=== PATIENT | female | born 1970 | race Caucasian/White ===

== ENCOUNTER 2016-06-17 07:06 | Day surgery (SDC) ==
[2016-06-16 09:03] LABS: MANUAL DIFF NEEDED? NO
[2016-06-16 09:09] LABS: BASO% 0.2 % (0.0-0.8); EOS% 2.3 % (0.0-10.0); HEMATOCRIT 34.6 % (37.0-47.0); HEMOGLOBIN 10.9 g/dL (12.0-16.0); LYMPH# 1.71 X1000 (1.2-3.4); LYMPH% 38.8 % (20.5-51.1); MCHC 31.5 g/dL (33-37); MCV 85.6 FL (81-99); MONO# 0.38 X1000 (0.11-0.59); MONO% 8.6 % (1.7-9.3); MPV 8.9 FL (7.4-10.4); NEUT% 50.1 % (42.2-75.2); PLT 293 X1000 (130-400); RBC 4.04 XMIL (4.2-5.4)
--- NOTE | 2016-06-16 19:05 | HISTORY AND PHYSICAL ---
HISTORY: The patient is a 46-year-old white female, para 3-0-0-3 with a history of 3 prior sections who is having increasing problems with pelvic pain. She has had problems in the past with some abnormal bleeding, has undergone an endometrial ablation. Because of worsening pain and worsening dyspareunia and ultrasound was performed showing probable hematometra. Because of this, she is wishing to proceed towards definitive surgical intervention. The risks and benefits have been discussed at length. PAST MEDICAL HISTORY: Negative for diabetes, hypertension, or asthma. PAST SURGICAL HISTORY: Positive for gallbladder surgery and 3 sections. ALLERGIES: Penicillin and latex. CURRENT MEDICATIONS: P.r.n. medications with Spreckels 5 and antihistamines. SOCIAL HISTORY: Negative for tobacco or drugs. Occasional ETOH. FAMILY HISTORY: Noncontributory. PHYSICAL EXAMINATION: GENERAL: BMI is 32. HEENT: Normocephalic, atraumatic. PERRLA. EOMI. No thyromegaly. CV: Regular rate and rhythm without murmur, gallop, or rub. PULMONARY: Clear to auscultation, percussion. ABDOMEN: Soft. : Shows normal external genitalia. Bimanual exam was not performed because of the ultrasound. NEURO: Is afocal. EXTREMITIES: Without clubbing, cyanosis or edema. ASSESSMENT AND PLAN: The patient with history of 3 prior sections and endometrial ablation is having increasing problems with pelvic pain and dyspareunia. Ultrasound confirms probable hematometra. She is admitted at this time for Da Ralph total laparoscopic hysterectomy with bilateral salpingectomy. The risks and benefits have been discussed.
[2016-06-17] MEDS ORDERED: TRANSDERM-SCOP ONE (07:31)
[2016-06-17] MEDS ORDERED: REGLAN ONE (07:31)
[2016-06-17] MEDS ORDERED: VALIUM ONE (07:31)
[2016-06-17] MEDS ORDERED: PEPCID ONE (07:31)
[2016-06-17] MEDS ORDERED: LR 1,000 ML ONE ×4 (07:32→12:28)
[2016-06-17] MEDS ORDERED: KEFZOL 1 GM/D5W 0 ML ONE (07:32)
[2016-06-17] MEDS ORDERED: VERSED ONE (09:24)
[2016-06-17] MEDS ORDERED: GENTAMICIN 80 MG/NS 50 ML ONE (09:29)
[2016-06-17] MEDS ORDERED: CLINDAMYCIN 600 MG/NS 50 ML ONE (09:29)
[2016-06-17] MEDS ORDERED: MARCAINE 0.25% PF/EPI 1:200,000 ONE (09:47)
[2016-06-17] MEDS ORDERED: D10W 500 ML ONE (09:48)
[2016-06-17] MEDS ORDERED: FENTANYL ONE (11:36)
[2016-06-17] MEDS ORDERED: DILAUDID ONE (11:36)
[2016-06-17 11:37] LABS: URINE MICRO REVIEW NEEDED? NO; URINE SOURCE CATH
[2016-06-17] MEDS ORDERED: DIPRIVAN 1% ONE (11:37)
[2016-06-17 11:43] LABS: BILIRUBIN URINE NEGATIVE (NEGATIVE); BLOOD URINE NEGATIVE (NEGATIVE); COLOR YELLOW; GLUCOSE URINE NEGATIVE (NEGATIVE); LEUKOCYTES URINE NEGATIVE (NEGATIVE); NITRITE URINE NEGATIVE (NEGATIVE); PH URINE 7.5; PROTEIN URINE TRACE mg/dL (NEGATIVE); SP GRAVITY URINE 1.028; TURBIDITY URINE CLEAR (CLEAR); UR EPITHELIAL CELLS <10 /HPF (<10); URINE BACTERIA NEGATIVE /HPF; URINE RBC <10 /HPF (<10); URINE WBC <10 /HPF (<10); UROBILINOGEN URINE 2 mg/dL (NORMAL)
[2016-06-17] MEDS ORDERED: TORADOL ONE (11:45)
[2016-06-17] MEDS ORDERED: XYLOCAINE-MPF 2% ONE (11:45)
[2016-06-17] MEDS ORDERED: QUELICIN (DOSE) ONE (11:45)
[2016-06-17] MEDS ORDERED: ZOFRAN ONE (11:45)
[2016-06-17] MEDS ORDERED: LASIX ONE (11:45)
[2016-06-17] MEDS ORDERED: ROBINUL ONE (11:45)
[2016-06-17] MEDS ORDERED: NEOSTIGMINE ONE (11:45)
[2016-06-17] MEDS ORDERED: ZEMURON ONE (11:46)
[2016-06-17] MEDS ORDERED: DECADRON ONE (11:46)
[2016-06-17] MEDS: DEMEROL ONE ×2 (12:07→12:13)
[2016-06-17] MEDS ORDERED: PHENERGAN ONE (12:21)
[2016-06-17] MEDS ORDERED: NORCO-5 PO PRN (13:00)
[2016-06-17] MEDS ORDERED: NEURONTIN PO SCH (13:00)
[2016-06-17] MEDS ORDERED: ZOFRAN ODT PO PRN (13:00)
[2016-06-17] MEDS ORDERED: PHENERGAN IM PRN (13:00)
[2016-06-17] MEDS ORDERED: DEMEROL IM PRN (13:00)
[2016-06-17] MEDS ORDERED: LR 1,000 ML IV SCH (13:00)
--- NOTE | 2016-06-17 13:04 | OPERATIVE NOTE ---
PROCEDURE DATE: 06/17/2016 PREOPERATIVE DIAGNOSES: 1. Pelvic pain. 2. Hematometra. POSTOPERATIVE DIAGNOSES: 1. Pelvic pain. 2. Hematometra. 3. Interstitial cystitis. 4. Pelvic adhesive disease. PROCEDURE PERFORMED: da Ralph total laparoscopic hysterectomy with lysis of adhesions and cystoscopy. SURGEON: Ced Stringer MD ANESTHESIA: General. ESTIMATED BLOOD LOSS: 10 mL. HISTORY: The patient is a 46-year-old female with history of prior x3, who is having increasing problems with pelvic pain. She had undergone prior ablation because of menorrhagia, and ultrasound showed suspected hematometra. The patient wished to proceed with surgical intervention. OPERATIVE FINDINGS: The patient was found to have hematometra with approximately 10-15 mL of blood intracavitary. She was also found to have distal fimbrial adhesions of both fallopian tubes to the iliac crest and was also found to have adhesions of the cecum into the appendiceal bed. It was not mobile at all. She was also found to have significant interstitial cystitis, mostly in the trigone area of the bladder. OPERATIVE PROCEDURE: The patient was taken to the operating room and placed in supine position. After adequate general anesthesia was obtained, she was placed in low Yellofin stirrups and her abdomen and vagina were prepped and draped in the usual fashion. A supraumbilical incision was made and a 12 mm port and sheath were introduced through this incision into the abdominal cavity. Pelvic contents were visualized. Therefore, insufflation with CO2 to an intraabdominal pressure of 14 was performed. The left-sided ports were placed in the typical fashion under direct visualization and after infiltration with 0.25% Marcaine with epinephrine. A right-sided port was placed in a similar fashion. The patient was placed in the deep Trendelenburg position and a De Santiago catheter was placed. A uterine manipulator was placed in the typical fashion after infiltration of both uterosacral ligaments with 0.25% Marcaine with epinephrine. At this time, the robot was docked with hot scissors in the right hand and bipolar gyrus in the left hand. We initially started on the left-hand side. The distal fallopian tube and fimbria were adhered to the sidewall and iliac crest, so elevating the tube away from this area we used primarily sharp with some cautery dissection to remove the fimbriae and adhesions, freeing up the distal fallopian tube. We then continued in clamp, cauterize, and cut fashion until the distal fallopian tube was excised from her prior site. This left essentially no fallopian tube because of her prior bilateral tubal ligation. The tube was removed. We then came down the uteroovarian pedicle, the round ligament, and the cardinal ligament in a clamp, cauterize, and cut fashion. As we got to the uterine vessels, we stopped in this area to catch up and then to perform anterior dissection because of her prior surgical interventions. We turned our attention towards the right side, again elevating the distal tube away from the sidewall and again using primarily sharp dissection. We dissected the fimbriae and fallopian tube away from the iliac crest and we continued in clamp, cauterize, and cut fashion through the mesosalpinx and then started at the uteroovarian pedicle and came down the round ligament and the cardinal ligament in a similar fashion using a clamp, cauterize, and cut fashion. We peritonealized anteriorly and then turned our attention towards cauterizing and excising the uterine vessels initially on the right-hand side and then back on the left-hand side. With the bladder well below our operative site, we then turned a single blade anteriorly onto a cervical cone the could be easily palpated. Using the single blade, we then cut down until the cone was visualized and we continued in a cauterize and cut fashion until the cervix was extirpated from its insertion. The uterus was then delivered through the vagina by nursing services. At this time, we closely inspected all pedicles and hemostasis was observed. There was a small amount of bleeding along 1 of the uterosacral ligaments at its insertion into the vagina. We then brought in a V-Loc suture and closed from right to left, anterior to posterior fashion. We then backhand sutured across the posterior portion in a way to plicate the uterosacral ligaments in the midline. Excess suture was excised and removed. At this time, closely inspecting all pedicles and dropping our pressures down to approximately 4, hemostasis was observed throughout. Copious amounts of irrigation was performed. As we were about to leave, we did, again, a second evaluation of the upper abdomen and noticed the adhesions in the cecal area, so we sharply dissected these away, giving mobility to the cecum. No other abnormalities were noted. The decision was made to terminate this portion of the procedure. All equipment was removed and the robot was undocked. A Ever-Carrie closure system was utilized to close the umbilicus and the ice cream freezer assistant port with 0 Vicryl ligature. Nursing services closed all skin incisions with subcuticular 4-0 Vicryl ligature. Vaginally, the cuff was noted to be intact and hemostatic. She did have a small laceration in the left sulcus at the introitus and this was closed with 2 sutures of 2-0 Vicryl ligature. The De Santiago catheter was removed and cystoscopy was performed after filling the bladder with 200 mL of D10. Both ureters were effluxing urine nicely. It was obvious that she had interstitial cystitis with a lot of spiral arterioles as well as Huhner lesions in the trigone area. No other abnormalities throughout the bladder. De Santiago catheter were replaced. The patient was taken out of low adjustable stirrups. She was awakened and taken to the recovery room with vital signs stable.
[2016-06-17] MEDS ORDERED: NORCO-5 ONE (14:06)
[2016-06-17 14:43] VITALS: BP 121/67
[2016-06-17] MEDS ORDERED: TORADOL IV SCH (15:34)
[2016-06-17] MEDS ORDERED: PRAVACHOL PO SCH (21:00)
[2016-06-18] MEDS ORDERED: NON-FORMULARY MED (Lisinopril/Hydrochlorothiazide [Lisinopril-Hctz 20-25 Mg Tab] 1 EACH) PO SCH (09:00)
== END 2016-06-17 15:04 | disposition home or self-care (01) ==
LOC: OR 07:06
PROVIDERS: ATTEND Obstetrics & Gynecology
DX: R10.2 Pelvic and perineal pain (principal); N85.7 Hematometra; N30.10 Interstitial cystitis (chronic) without hematuria; N73.6 Female pelvic peritoneal adhesions (postinfective); E78.00 Pure hypercholesterolemia, unspecified
CPT/HCPCS: 36415; 81001; 85025; 88307; J0330; J0690; J1100; J1170; J1580; J1885; J1940; J2175; J2250; J2405; J2550; J3010; J7120; J2710; S0077